=== PATIENT | female | born 1960 | race Caucasian/White ===

== ENCOUNTER 2024-07-30 08:48 | Observation (INO) ==
[~2024-07-30 08:48] MED LIST: Metoclopramide 5 MG/ML VIAL (10 mg) IV PRN; NS 0.45% 1000 ml BAG 1,000 ML IV SCH; Naloxone 0.4 mg VIAL 0.4 mg/ml 1 ml VIAL IV PRN; Ondansetron 4 mg VIAL 2 MG/ML 2 ml VIAL IV PRN; fentaNYL 100 mcg/2 ml 50 MCG/ML VIAL IV PRN
[2024-07-30] MEDS ORDERED: Tranexamic Acid 1 GM/100ML BAG 2,000 MG/200 ML BAG IV ONE (09:07)
[2024-07-30] MEDS ORDERED: ceFAZolin 2 GM PREMIX 2 GM/50 ML BAG ONE (09:07)
[2024-07-30] MEDS ORDERED: Midazolam 2 mg/2 ml VIAL 1 mg/ml 2 ml VIAL (2 mg) ONE (09:17)
[2024-07-30] MEDS: Lactated Ringers 1000 ml BAG 1,000 ML IV SCH ×2 (09:30→16:02)
[2024-07-30 09:34] LABS: Rapid COVID-19 Molecular Undetected (Undetected)
[2024-07-30] MEDS ORDERED: fentaNYL 100 mcg/2 ml 50 MCG/ML VIAL ONE ×2 (10:47→12:33)
[2024-07-30] MEDS ORDERED: Rocuronium 50 mg VIAL 10 mg/ml 5 ml VIAL (50 mg) ONE (10:47)
[2024-07-30] MEDS ORDERED: Propofol 10 MG/ML 20 ML BTL ONE (10:51)
[2024-07-30] MEDS ORDERED: Lidocaine 2% PF 5 ML VIAL ONE (10:51)
[2024-07-30] MEDS ORDERED: ROPIVACAINE 5 MG/ML 30 ML BTL (0.5%) ONE (11:56)
[2024-07-30] MEDS ORDERED: KETAMINE HCL 10 MG/ML 20 ml VIAL (200 MG) ONE (12:30)
[2024-07-30] MEDS ORDERED: HYDROmorphone 0.5 MG/0.5 ML SYRINGE ONE ×2 (12:32→14:09)
[2024-07-30] MEDS ORDERED: Ondansetron 4 mg VIAL 2 MG/ML 2 ml VIAL ONE (12:49)
[2024-07-30] MEDS ORDERED: Dexamethasone IV 4 MG/ML VIAL 1 ml VIAL ONE (12:49)
[2024-07-30] MEDS ORDERED: Ondansetron 4 mg VIAL 2 MG/ML 2 ml VIAL IV PRN (15:07)
[2024-07-30] MEDS ORDERED: Lactulose 30 ml UDC PO PRN (15:07)
[2024-07-30] MEDS ORDERED: Morphine 2 MG/ML SYRINGE IV PRN (15:07)
[2024-07-30] MEDS ORDERED: Magnesium Hydroxide LIQ 30 ML UDC PO PRN (15:07)
[2024-07-30] MEDS ORDERED: Calcium Carb (TUMS) 500 mg CHEW TAB PO PRN (15:07)
[2024-07-30] MEDS: Ondansetron ODT 4 mg TAB 4 MG TAB PO PRN (16:02)
[2024-07-30] MEDS: Acetaminophen IV 1 GM/100ML 1,000 MG/100 ML BAG IV ONE (17:34)
[2024-07-30] MEDS: Buffered Lidocaine 1% SYRIN 1 ml INTRADERM ONE (17:34)
[2024-07-30] MEDS: Scopolamine 1 mg/72hr PATCH TRANSDERM ONE (17:35)
[2024-07-30] MEDS: ceFAZolin 2 GM PREMIX 2 GM/50 ML BAG IV SCH (20:46)
[2024-07-30] MEDS: Magnesium Hydroxide LIQ 30 ML UDC PO SCH (20:48)
[2024-07-31 06:28] LABS: Hematocrit 32.3 % (35-45); Hemoglobin 11.3 g/dL (11.5-14.3); Mean Platelet Volume 7.9 fL (7.5-11.2); Platelet Count 197 10^3/uL (150-450)
[2024-07-31 07:12] LABS: Calcium 8.7 mg/dL (8.6-10.3); Creatinine, Serum 0.74 mg/dL (0.51-0.95); eGFR CKD-EPI 90.3 (>60)
[2024-07-31] MEDS: Vitamin THERAPEUTIC TAB PO SCH (08:52)
[2024-07-31 09:46] VITALS: BP 132/86
== END 2024-07-31 13:20 | disposition home or self-care (01) ==
LOC: SSU 08:48 → OR 08:48
PROVIDERS: ADMIT Orthopaedic Surgery Adult Reconstructive Orthopaedic Surgery; ATTEND Orthopaedic Surgery Adult Reconstructive Orthopaedic Surgery